=== PATIENT | female | born 2000 | race Caucasian/White ===

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

== ENCOUNTER 2022-02-02 22:59 | Emergency (ER) | payer MEDICAID ==
[~2022-02-02] VITALS: Ht 157.5 cm; Wt 63.5 kg
[2022-02-02 23:04] VITALS: BP 125/76
--- NOTE | 2022-02-03 03:25 | NUR ---
pt to bed 07.
--- NOTE | 2022-02-03 04:18 | NUR ---
Dr. Degroot examining patient.
[2022-02-03] MEDS ORDERED: ACETAMINOPHEN EXTRA STRENGTH 500 MG TAB PO ONE (04:20)
[2022-02-03] MEDS ORDERED: KETOROLAC 15 MG/ML VIAL IM ONE (04:20)
[2022-02-03] MEDS ORDERED: METOCLOPRAMIDE 10 MG TAB PO ONE (04:20)
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
[2022-02-03] MEDS ORDERED: ACET-9496 PO (05:20)
[2022-02-03 05:32] VITALS: BP 124/67
--- NOTE | 2022-02-03 05:32 | NUR ---
Patient discharged with v/s stable. Written and verbal after care instructions given and explained. Patient alert, oriented and verbalized understanding of instructions. Ambulatory with steady gait. All questions addressed prior to discharge. ID band removed. Patient advised to follow up with PMD. Rx of excedrin extra strength caplet given. Patient educated on indication of medication including possible reaction and side effects. Opportunity to ask questions provided and answered.
== END 2022-02-03 05:32 | disposition home or self-care (01) ==
LOC: MED 22:59
DX: G43.909 Migraine, unspecified, not intractable, without status migrainosus (principal); R03.0 Elevated blood-pressure reading, without diagnosis of hypertension; Z79.899 Other long term (current) drug therapy
CPT/HCPCS: 81025; 96372; 99284; J1885; J8597; Q0163

== ENCOUNTER 2022-03-29 01:38 | Emergency (ER) | payer MEDICAID ==
[~2022-03-29] VITALS: Ht 157.5 cm; Wt 73.5 kg
[~2022-03-29 01:38] MED LIST: ACET-9496 PO
[2022-03-29 01:43] VITALS: BP 109/62
--- NOTE | 2022-03-29 01:56 | NUR ---
Patient ambulated to bed 12.
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
[2022-03-29] MEDS ORDERED: MORPHINE SULFATE 2 MG/ML SYR IVP ONE (02:10)
[2022-03-29] MEDS ORDERED: NACL 0.9% 1,000 ML IV ONE (02:10)
[2022-03-29] MEDS ORDERED: ONDANSETRON 4 MG/2 ML VIAL IVP ONE (02:10)
--- NOTE | 2022-03-29 02:42 | NUR ---
XRAY AT BEDSIDE.
[2022-03-29 02:57] LABS: BASOPHILS # (AUTO) 0.1 K/uL (0.00-0.22); BASOPHILS % (AUTO) 0.6 % (0.0-2.0); EOSINOPHILS # (AUTO) 0.1 K/uL (0-0.4); EOSINOPHILS % (AUTO) 1.7 % (0.0-4.0); HEMATOCRIT 37.7 % (36-48); HEMOGLOBIN 12.7 g/dL (12.0-16.0); LYMPHOCYTES # (AUTO) 3.2 K/uL (2.5-16.5); LYMPHOCYTES % (AUTO) 38.1 % (20.5-51.1); MEAN CORPUSCULAR HEMOGLOBIN 32 pg (27-31); MEAN CORPUSCULAR HGB CONC 34 g/dL (33-37); MEAN CORPUSCULAR VOLUME 95.7 fL (80-94); MONOCYTES # (AUTO) 0.6 K/uL (0.8-1.0); MONOCYTES % (AUTO) 7.8 % (1.7-9.3); NEUTROPHILS # (AUTO) 4.3 K/uL (1.8-7.7); NEUTROPHILS % (AUTO) 51.8 % (42.2-75.2); PLATELET COUNT (AUTO) 436 K/uL (140-450); RED BLOOD CELL COUNT(AUTO) 3.94 MIL/uL (4.20-5.40); RED CELL DISTRIBUTION WIDTH 13.1 % (11.6-13.7); WHITE BLOOD COUNT (AUTO) 8.3 K/uL (4.8-10.8)
[2022-03-29 03:08] LABS: ALBUMIN 3.5 g/dL (3.4-5.0); ANION GAP 12.8 (8-16); CARBON DIOXIDE 25.8 mmol/L (21-32); CREATININE 0.5 mg/dL (0.6-1.3); POTASSIUM 3.6 mmol/L (3.5-5.1); TOTAL BILIRUBIN 0.4 mg/dL (0.0-1.0)
--- NOTE | 2022-03-29 04:00 | NUR ---
PT BACK FROM CT SCAN, PT STATES PAIN HAS REDUCED. RESTING IN BED.
--- NOTE | 2022-03-29 06:00 | NUR ---
PT CONTINUES TO REST, WAITING FOR CT RESULT.
--- NOTE | 2022-03-29 07:11 | NUR ---
REPORT GIVEN TO JORDI ISSA.
--- NOTE | 2022-03-29 07:12 | NUR ---
REPORT RECEIVED FROM SAMARA RUBIO. ASSUMED CARE AT THIS TIME
--- NOTE | 2022-03-29 07:20 | NUR ---
pt at rest and sleeping supine position. no visible distress. respirations even and unlabored. bed at lowest position, bed rails up x2.
[2022-03-29] MEDS ORDERED: ACET650S53 GT (09:19)
[2022-03-29] MEDS ORDERED: ACETAMINOPHEN EXTRA STRENGTH 500 MG TAB PO ONE (09:20)
[2022-03-29 09:42] VITALS: BP 105/54
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
--- NOTE | 2022-03-29 10:19 | NUR ---
The patient's care was reviewed and supervised by Nettie Vegas, RN, RN.
== END 2022-03-29 09:42 | disposition home or self-care (01) ==
LOC: MED 01:38
DX: S30.1XXA Contusion of abdominal wall, initial encounter (principal); X58.XXXA Exposure to other specified factors, initial encounter; Y93.89 Activity, other specified; Y92.89 Other specified places as the place of occurrence of the external cause; Y99.8 Other external cause status
CPT/HCPCS: 36415; 73130; 74177; 80053; 81002; 81025; 83605; 84702; 85025; 96361; 96374; 96375; 99285; J2270; J2405; J7030; Q0092; Q9967

== ENCOUNTER 2023-04-14 20:12 | Emergency (ER) | payer MEDICAID ==
[~2023-04-14] VITALS: Ht 154.9 cm; Wt 68.0 kg
[~2023-04-14 20:12] MED LIST changes: +ACET650S53 GT
[2023-04-14 20:21] VITALS: BP 129/82; PULSE 106; RESP 16; TEMP 97.4; O2SAT 100
[2023-04-14] MEDS ORDERED: POLY17PD46 PO (23:32)
[2023-04-14] MEDS ORDERED: DOCU-300 PO (23:32)
[2023-04-15 00:19] VITALS: BP 129/82; PULSE 106; RESP 16; TEMP 97.4; O2SAT 100
== END 2023-04-15 00:19 | disposition home or self-care (01) ==
LOC: MED 20:12
DX: K59.00 Constipation, unspecified (principal); E11.9 Type 2 diabetes mellitus without complications; Z79.899 Other long term (current) drug therapy
CPT/HCPCS: 99282